=== PATIENT | female | born 1990 | race Caucasian/White ===

== ENCOUNTER 2018-10-20 05:30 | Inpatient (IN) | payer OTHER ==
--- NOTE | 2018-10-19 00:31 | PDOC.FPROB ---
FMR OB H&P: HPI - History of Present Illness Chief Complaint: Elective IOL Indentification: 28 year old at 39 wks History of Present Illness: 28 year old at 39 wks presents for elective IOL. Patient denies vaginal bleeding, vaginal discharge, LoF, contractions. Endorses good movement. 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 Endorses past history of smoking but reportedly quit 3 years ago. FMR OB H&P: Medications - Current Home Medications: Medication Instructions Recorded Confirmed Type Vitamin 1 tablet PO DAILY 10/20/18 10/20/18 History Sertraline HCl 100 mg PO DAILY 10/20/18 10/20/18 History Allergies/Adverse Reactions: Allergies Allergy/AdvReac Type Severity Reaction Status Date / Time Sulfa (Sulfonamide Allergy Swollen Verified 10/20/18 08:01 Antibiotics) Lips FMR OB H&P: A/P - Problem List (1) Term Status: Acute Code(s): Z34.90 - ENCNTR FOR SUPRVSN OF NORMAL , UNSP, UNSP TRIMESTER (2) Elective induction of labor planned Status: Acute Code(s): GXA2940 - (3) MDD (major depressive disorder) Status: Acute Code(s): F32.9 - MAJOR DEPRESSIVE DISORDER, SINGLE EPISODE, UNSPECIFIED Disposition: 28 year old at 39 wks presents for eIOL 1. TIUP - Category I strip - Cervical exam 3.5//-1 at 8:20 - Presentation, cephalic - Augmentation with pitocin given favorable cervix. - Contractions q2 min 2. MDD - Continue Zoloft - ARMAAN 7 and PHQ-9 of 8 on previous evaluation - Patient declined counseling during - Well controlled; no SI/HI 3. 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 Herring who agrees with the above documentation and plan. Signature: Silvia Little, DO PGY-2 Addendum - Attending - Attending Attestation Date/Time: 10/20/18 1116 I personally evaluated the patient and discussed the management with Dr. Little. I agree with the History, Examination, Assessment and Plan documented above with any addition or exceptions noted below.
[2018-10-20] MEDS ORDERED: Docusate 100 MG CAP PO PRN (07:06)
[2018-10-20] MEDS ORDERED: Promethazine HCl 25 MG/ML VIAL IM PRN (07:06)
[2018-10-20] MEDS ORDERED: Acetaminophen 500 MG TAB PO PRN (07:06)
[2018-10-20] MEDS ORDERED: NS w/ Oxytocin 10 units 500 ML IV SCH (07:06)
[2018-10-20] MEDS ORDERED: Ondansetron PF 4 MG/2 ML Vial IVP PRN ×2 (07:06→19:12)
[2018-10-20] MEDS ORDERED: Ibuprofen 800 MG TAB PO PRN (07:06)
[2018-10-20] MEDS ORDERED: Lidocaine 1% (PF) 30 ML VIAL SC PRN (07:06)
[2018-10-20] MEDS ORDERED: Butorphanol Tartrate 1 MG/ML VIAL SLOW IVP PRN (07:06)
[2018-10-20] MEDS: Lactated Ringer's 1,000 ML IV SCH ×2 (07:42→11:28)
[2018-10-20 07:56] VITALS: BMI 20.9
[2018-10-20 08:23] LABS: Hemoglobin 11.2 g/dL (12.0-16.0); Mean Corpuscular HGB CONC 33.7 g/dL (32.0-36.0); Mean Corpuscular Hemoglobin 27.6 pg (27.0-31.0); Mean Platelet Volume 7.5 fL (7.4-10.4); Platelet Count 202 thou/uL (130-400); RBC Distribution Width 13.4 % (11.5-14.5); Red Blood Cell (RBC) Count 4.04 mill/uL (4.20-5.40); White Blood Cell (WBC) Count 6.6 thou/uL (4.8-10.8)
[2018-10-20 09:07] LABS: Hep B Surf Ag Non-Reactive S/CO (NonReactive)
[2018-10-20 09:49] LABS: Syphilis Antibody Nonreactive (Nonreactive); Syphilis Antibody Index 0.06 S/CO (<1.00 Non-Reactive)
[2018-10-20] MEDS ORDERED: Fentanyl 4 mcg/Bup 0.1% Cadd 100 ML ONE (12:45)
[2018-10-20] MEDS ORDERED: Acetaminophen 325 MG TAB PO PRN (13:26)
[2018-10-20] MEDS ORDERED: Naloxone HCl 0.4 mg/ml Vial IVP PRN ×2 (13:26)
[2018-10-20] MEDS ORDERED: Lactated Ringer's 500 ML IV PRN (13:26)
[2018-10-20] MEDS ORDERED: ePHEDrine/0.9% NaCl/PF SYRINGE 50 mg/10 ml SLOW IVP PRN (13:26)
[2018-10-20] MEDS ORDERED: Fentanyl 4 mcg/Bupivacaine 0.1% Cassette 100 ML EPIDURAL SCH (13:30)
[2018-10-20] MEDS ORDERED: Communication Order-Pharmacy FS SCH (13:30)
[2018-10-20] MEDS ORDERED: Bupivacaine/Epinephrine 0.25% 30 ML VIAL ONE (15:00)
[2018-10-20] MEDS: NS / Oxytocin 40 units/1000ml 1,000 ML IV PRN ×2 (17:15→18:18)
[2018-10-20] MEDS ORDERED: Methylergonovine 0.2 MG TAB ONE (17:17)
[2018-10-20] MEDS ORDERED: Methylergonovine 0.2 MG/ML VIAL ONE (17:17)
[2018-10-20] MEDS ORDERED: Methylergonovine 0.2 MG/ML VIAL IM SCH (19:00)
[2018-10-20] MEDS ORDERED: NS / Oxytocin 40 units/1000ml 1,000 ML IV SCH (19:12)
[2018-10-20] MEDS ORDERED: Milk Of Magnesia 30 ML UDCUP PO PRN (19:12)
[2018-10-20] MEDS ORDERED: Bisacodyl 10 MG SUPP PR PRN (19:12)
[2018-10-20] MEDS ORDERED: Lanolin Ointment 7 GM TUBE TOP PRN (19:12)
[2018-10-20] MEDS ORDERED: diphenhydrAMINE 25 MG CAP PO PRN (19:12)
[2018-10-20] MEDS ORDERED: Adacel (T-DAP) 0.5 ML SYRINGE IM ONE (19:12)
[2018-10-20] MEDS ORDERED: Preparation H Ointment 28 GM TUBE PR PRN (19:12)
[2018-10-20] MEDS ORDERED: Benzocaine-Menthol 82.5 ML CAN TOP PRN (19:12)
[2018-10-20] MEDS: Ibuprofen 800 MG TAB PO SCH (21:21)
[2018-10-20] MEDS: Docusate Calcium (SURFAK) 240 MG CAP PO SCH (21:21)
[2018-10-21] MEDS: Ibuprofen 800 MG TAB PO SCH ×3 (06:18→21:24)
--- NOTE | 2018-10-21 07:29 | PDOC.PP ---
Post Progress Note Post Day #: 1 Subjective: Patient doing well. No significant overnight events. Patient tolerating PO. Lochia like that of period. PO intake tolerated: yes Flatus: yes Ambulation: yes Vital Signs (12 hours) Temp Pulse Resp BP Pulse Ox 10/21/18 04:40 97.8 F 65 18 106/59 L 10/21/18 00:13 97.9 F 56 L 18 117/56 L 10/20/18 21:21 98.2 F 77 18 117/63 10/20/18 19:55 98.3 F 88 20 119/61 99 Weight Weight 57.153 kg - Physical Examination General: NAD Cardiovascular: no m/r/g, RRR Respiratory: clear to auscultation bilaterally, non-labored breathing Abdominal: + bowel sounds, lochia (like that of period), no distention, appropriately TTP Fundus firm & at: at umbilicus Skin: no rash Neurological: no gross focal deficits Psychiatric: A&Ox3, normal affect Result Diagrams: 10/20/18 07:47 Additional Labs: Post Labs Blood Type A POSITIVE 10/20/18 08:29 Hep Bs Antigen Non-Reactive S/CO (NonReactive) 10/20/18 07:47 (1) Term delivered Code(s): O80 - ENCOUNTER FOR FULL-TERM UNCOMPLICATED DELIVERY Status: Acute (2) MDD (major depressive disorder) Code(s): F32.9 - MAJOR DEPRESSIVE DISORDER, SINGLE EPISODE, UNSPECIFIED Status : Acute (3) (spontaneous vaginal delivery) Code(s): O80 - ENCOUNTER FOR FULL-TERM UNCOMPLICATED DELIVERY Status: Acute - Assessment/Plan 28 year old at 39.1 wks delivered TAGA F at 17:12 on 10/20/2018 via . Apgars 8/9. 1. Routine PP care - PP day #1 - Tolerating PO, ambulating, passing flatus - Lochia minimal - only 2. MDD - Continue Zoloft - ARMAAN 7 and PHQ-9 of 8 on last evaluation - Patient declined counseling during - Well controlled; no SI/HI 3. 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 Anticipate d/c home tomorrow. Addendum - Attending - Attending Attestation Date/Time: 10/21/18 0514 I personally evaluated the patient and discussed the management with Dr. Little I agree with the History, Examination, Assessment and Plan documented above with any addition or exceptions noted below. Stable PPD # 1 s/p . Meeting milestones. Anticipate d/c to home tomorrow
[2018-10-21] MEDS: Prenatal Vitamin 1 TAB PO SCH (08:02)
[2018-10-21] MEDS: Docusate Calcium (SURFAK) 240 MG CAP PO SCH ×2 (08:02→21:24)
[2018-10-21] MEDS: Ferrous Sulfate 325 MG TAB PO SCH ×2 (08:03→17:35)
[2018-10-21] MEDS ORDERED: Prenatal Vitamin 1 TAB PO SCH (09:00)
--- NOTE | 2018-10-21 14:07 | PDOC.EVN ---
Event Note - Event Note Event Note: I supervised and assisted with the yesterday evening. See resident note for details.
--- NOTE | 2018-10-21 15:32 | OP ---
DATE OF PROCEDURE: 10/20/2018 DATE OF DELIVERY: 10/20/2017. RESIDENT: Silvia Little DO. ATTENDING PHYSICIAN: Heriberto Herring MD. PREOPERATIVE DIAGNOSES: 1. Term intrauterine . 2. Elective induction of labor. 3. Major depressive disorder. 4. . POSTOPERATIVE DIAGNOSES: 1. Term intrauterine , delivered. 2. Elective induction of labor. 3. Spontaneous vaginal delivery. 4. First-degree perineal laceration, status post repair. INDICATIONS: This is a 28-year-old G1, P0, at 39 and 1 weeks who presented to Labor and Delivery for elective induction of labor. PROCEDURE IN DETAIL: After an uneventful antepartum course, a 28-year-old, G1, P0, at 39 and 1 weeks, delivered a TAGA female infant at 1712 on 10/20/2018, via spontaneous vaginal delivery. The anterior shoulders delivered and remainder of the body followed. Infant was suctioned at perineum, dried and stimulated and placed on the mother for skin to skin. was noted to be vigorous with Apgars of eight and nine at 1 and 5 minutes respectively. Cord blood was collected and the placenta was delivered intact with three-vessel cord noted and discarded. The vagina was inspected for lacerations and first-degree laceration was noted and repaired using 3-0 Vicryl on SH with one [id number] stitch. No laceration noted. The fundus was firm after the administration of 0.2 of Methergine. No complications. The patient was for routine recovery/care. Job ID: [id number]
[2018-10-21] MEDS ORDERED: Protamine Sulfate 50 MG/5 ML VIAL ONE (21:22)
[2018-10-21] MEDS ORDERED: Heparin 5,000 UNITS/ML VIAL ONE (21:22)
[2018-10-22] MEDS: Ibuprofen 800 MG TAB PO SCH (06:02)
--- NOTE | 2018-10-22 07:26 | PDOC.PP ---
Post Progress Note Post Day #: 2 Subjective: Patient doing well. No significant overnight events. Tolerating PO. Lochia normal. PO intake tolerated: yes Flatus: yes Ambulation: yes Vital Signs (12 hours) Temp Pulse Resp BP Pulse Ox 10/21/18 19:57 97.7 F 62 16 104/59 L 100 Weight Weight 57.153 kg - Physical Examination General: NAD Cardiovascular: RRR Respiratory: non-labored breathing Abdominal: + bowel sounds, lochia (minimal) Fundus firm & at: below umbilicus Skin: no rash Neurological: no gross focal deficits Psychiatric: normal affect Result Diagrams: 10/20/18 07:47 Additional Labs: Post Labs Blood Type A POSITIVE 10/20/18 08:29 Hep Bs Antigen Non-Reactive S/CO (NonReactive) 10/20/18 07:47 (1) Term delivered Code(s): O80 - ENCOUNTER FOR FULL-TERM UNCOMPLICATED DELIVERY Status: Acute (2) MDD (major depressive disorder) Code(s): F32.9 - MAJOR DEPRESSIVE DISORDER, SINGLE EPISODE, UNSPECIFIED Status : Acute (3) (spontaneous vaginal delivery) Code(s): O80 - ENCOUNTER FOR FULL-TERM UNCOMPLICATED DELIVERY Status: Acute - Assessment/Plan 28 year old at 39.1 wks delivered TAGA F infant at 17:12 on 10/20/2018 via . Apgars 8/9. 1. Routine PP care - PP day #2 - Tolerating PO, ambulating, passing flatus - Lochia minimal - only 2. MDD - Continue Zoloft - ARMAAN 7 and PHQ-9 of 8 on last evaluation - Patient declined counseling during - Well controlled; no SI/HI 3. 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 Addendum - Attending - Attending Attestation Date/Time: 10/22/18 [id number] I personally evaluated the patient and discussed the management with Dr. Little I agree with the History, Examination, Assessment and Plan documented above with any addition or exceptions noted below. Stable PPD #2. Meeting all appropriate milestones. D/C to home today.
[2018-10-22] MEDS: Ferrous Sulfate 325 MG TAB PO SCH (07:34)
[2018-10-22 08:28] VITALS: BP 112/60; TEMP 98.2
[2018-10-22] MEDS: Prenatal Vitamin 1 TAB PO SCH (09:32)
[2018-10-22] MEDS: Docusate Calcium (SURFAK) 240 MG CAP PO SCH (09:32)
== END 2018-10-22 12:15 | disposition home or self-care (01) | DRG 807 ==
LOC: L&D 06:47 → 3SW 20:08
PROVIDERS: ADMIT Family Medicine; ATTEND Family Medicine
PROC: 10E0XZZ Delivery of Products of Conception, External Approach (ICD-10-PCS; principal; 2018-10-20)
PROC: 0HQ9XZZ Repair Perineum Skin, External Approach (ICD-10-PCS; 2018-10-20)
DX: O99.344 Other mental disorders complicating childbirth (principal); Z37.0 Single live birth; F32.9 Major depressive disorder, single episode, unspecified; O70.0 First degree perineal laceration during delivery; Z3A.39 39 weeks gestation of pregnancy; Z79.899 Other long term (current) drug therapy; Z79.82 Long term (current) use of aspirin
CPT/HCPCS: 36415; 51702; 85027; 86780; 86850; 86900; 86901; 87340; J0595; J1644; J2001; J2210; J2405; J2590; J2720